=== PATIENT | male | born 1975 | race American Indian/Alaskan Native ===

== ENCOUNTER 2017-05-22 20:18 | Emergency (ER) | payer OTHER ==
[2017-05-22 20:52] VITALS: BP 150/101
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
--- NOTE | 2017-05-23 02:19 | XRay Report ---
FINAL REPORT PROCEDURE: XR ELBOW 3+V RT TECHNIQUE: Laterality elbow radiographs, including AP, lateral, and oblique views. CPT 10824 HISTORY: direct blow with pain and swelling COMPARISON: No prior studies are available for comparison. FINDINGS: Fracture (s) and/or Dislocation(s): None . Alignment: Normal . Joint space(s): Slight narrowing of the joint spaces. Moderate spur formation off the olecranon.. Soft tissues: Normal . Bone mineralization: Normal . Foreign bodies: None . IMPRESSION: No acute fracture or dislocation. Mild arthritis.
== END 2017-05-23 03:36 | disposition home or self-care (01) ==
LOC: ED 20:18
DX: S50.01XA Contusion of right elbow, initial encounter (principal); F31.9 Bipolar disorder, unspecified; F20.9 Schizophrenia, unspecified; W22.8XXA Striking against or struck by other objects, initial encounter; Y93.9 Activity, unspecified; Y92.9 Unspecified place or not applicable; Y99.9 Unspecified external cause status

== ENCOUNTER 2017-06-25 12:23 | Emergency (ER) | payer SELFPAY ==
[2017-06-25] MEDS ORDERED: ZOFRAN IV ONE (12:25)
[2017-06-25] MEDS ORDERED: NACL 0.9% 1000 ML 1,000 ML IV ONE (12:25)
[2017-06-25 12:54] LABS: Basophils % (Auto) 0.6 % (0.0-1.8); Eosinophils % (Auto) 1.8 % (0.0-4.3); Hematocrit 48.6 % (35.5-45.6); Hemoglobin 15.9 gm/dl (11.8-15.2); Mean Corpuscular HGB Conc 33 % (32-34); Mean Corpuscular Hemoglobin 30 pg (28-32); Mean Corpuscular Volume 91 fl (84-94); Platelet Count 338 K/mm3 (140-440); Red Blood Count 5.36 M/mm3 (3.65-5.03); Red Cell Distribution Width 13.4 % (13.2-15.2)
[2017-06-25 13:11] LABS: Alanine Aminotransferase 48 units/L (7-56); Albumin 3.6 g/dL (3.9-5); Albumin/Globulin Ratio 0.9 %; Alkaline Phosphatase 78 units/L (35-129); Blood Urea Nitrogen 14 mg/dL (9-20); Calcium 9.5 mg/dL (8.4-10.2); Carbon Dioxide 25 mmol/L (22-30); Glucose 163 mg/dL (75-100); Lipase 16 units/L (13-60); Total Protein 7.8 g/dL (6.3-8.2)
[2017-06-25 13:12] LABS: Anion Gap 17 mmol/L; Chloride 97.5 mmol/L (98-107); Potassium 4.8 mmol/L (3.6-5.0); Sodium 135 mmol/L (137-145)
--- NOTE | 2017-06-25 14:02 | Emergency Department Report ---
Chief Complaint: Nausea/Vomiting/Diarrhea Stated Complaint: N/V Time Seen by Provider: 06/25/17 12:25 - HPI History of Present Illness: PT c/o n/v since today. PT states he can taste metal. PT had neck surgery last month. - ROS Review of Systems: + vomiting + nausea - Exam Vital Signs: Vital Signs 06/25/17 12:25 Temperature 98.6 F Pulse Rate 97 H Respiratory 17 Rate Blood Pressure 161/111 O2 Sat by Pulse 100 Oximetry Physical Exam: pt actively vomiting MSE screening note: Focused history and physical exam performed. Due to findings the following was ordered: labs, meds ED Medical Decision Making - Lab Data Result diagrams: 06/25/17 12:38 06/25/17 12:38 ED Disposition for MSE Condition: Stable Referrals: PRIMARY CARE, [Primary Care Provider] - 3-5 Days
[2017-06-25] MEDS ORDERED: NACL 0.9% 1000 ML 1,000 ML ONE (15:27)
[2017-06-25] MEDS ORDERED: ZOFRAN ONE (15:27)
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
[2017-06-25] MEDS ORDERED: NACL ONE (17:32)
--- NOTE | 2017-06-25 18:28 | Cat Scan Report ---
FINAL REPORT EXAM: CT NECK W CON HISTORY: neck pain, ANTWON, NECK SURGERY 2 WKS AGO TECHNIQUE: CT neck with IV contrast PRIORS: None. FINDINGS: No evidence of for pharyngeal tonsillar enlargement no evidence of enlargement of the adenoids. No pathologically enlarged lymph nodes are identified in the neck The major salivary glands are within normal limits No abnormal mass or cyst is seen. Proximal esophagus does not appear dilated. No focal inflammatory change seen. Major vascular structures are unremarkable. Thyroid is not enlarged. There is been anterior fusion of the cervical spine C5-C6 C7 with disc spacers present. Hardware appears intact. No adjacent mass or fluid collection identified. IMPRESSION: Cervical spine fusion with anterior fusion hardware C5-C6 C7 No acute abnormality identified.
[2017-06-25 18:30] LABS: Bilirubin,Urine NEG (Negative); Blood,Urine NEG (Negative); Ketones,Urine NEG (Negative); Leukocyte Esterase,Urine NEG (Negative); Nitrite,Urine NEG (Negative); Protein,Urine <15 mg/dL mg/dL (Negative)
[2017-06-25 20:00] VITALS: BP 143/93
== END 2017-06-25 19:59 | disposition home or self-care (01) ==
LOC: ED 12:23
DX: M54.2 Cervicalgia (principal); R11.10 Vomiting, unspecified; F20.9 Schizophrenia, unspecified; F31.9 Bipolar disorder, unspecified
CPT/HCPCS: 36415; 70491; 80053; 81001; 83690; 85025; 96361; 96374; 99284; J2405; J7030; Q9967

== ENCOUNTER 2021-07-06 23:43 | Emergency (ER) | payer OTHER ==
[2021-07-07 00:16] VITALS: BP 158/96
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
--- NOTE | 2021-07-07 01:15 | Vascular Lab Report ---
DUPLEX DOPPLER LOWER EXTREMITY VEINS, RIGHT INDICATION / CLINICAL INFORMATION: (+) right calf tenderness. TECHNIQUE: Duplex doppler imaging was performed through the veins of the right lower extremity using venous comp ression and other maneuvers. COMPARISON: None available. FINDINGS: RIGHT COMMON FEMORAL VEIN: Negative. RIGHT FEMORAL VEIN: Negative. RIGHT POPLITEAL VEIN: Negative. RIGHT CALF VEINS: Negative. ADDITIONAL FINDINGS: Small amount of fluid in the suprapatellar region. IMPRESSION: 1. No sonographic evidence for DVT in the right lower extremity. Signer Name: Freddie Cox MD Signed: 07/07/2021 1:11 AM Workstation Name: [id number]
--- NOTE | 2021-07-07 01:52 | XRay Report ---
Right knee 3 views INDICATION: Knee pain and injury FINDINGS: Mild patellofemoral degenerative change. Alignment appears normal. No acute fracture is see n IMPRESSION: Patellofemoral degenerative change. No acute fracture. Mild diffuse soft tissue swelling within the k nee. Signer Name: Freddie Cox MD Signed: 07/07/2021 1:48 AM Workstation Name: [id number]
== END 2021-07-07 02:35 | disposition home or self-care (01) ==
LOC: ED 23:43
DX: S89.91XA Unspecified injury of right lower leg, initial encounter (principal); X58.XXXA Exposure to other specified factors, initial encounter; Y93.89 Activity, other specified; Y92.89 Other specified places as the place of occurrence of the external cause; Y99.8 Other external cause status; F31.9 Bipolar disorder, unspecified; F20.9 Schizophrenia, unspecified
CPT/HCPCS: 99283; 99284